=== PATIENT | female | born 1950 | race Caucasian/White ===

== ENCOUNTER 2021-01-17 10:44 | Emergency (ER) | payer MEDICARE, OTHER ==
[~2021-01-17] VITALS: Ht 160 cm; Wt 56.7 kg
--- NOTE | 2021-01-17 11:20 | NUR ---
MILD NAUSEA/MUSCLE ACHES AND COUGH->TESTED POSITIVE FOR COVID ON FRIDAY. "I HAVE DINAH AND CELIAC AND MY PCP BACK HOME RECCOMENDED I HAVE THE ANTI BODY INFUSION" APPEARS WELL, VSS (POX 99% WITH RR OF 12) ERP AT BEDSIDE TO ADMIN ANTIBODY
[2021-01-17] MEDS ORDERED: BAMLANIVIMAB 700 MG in SODIUM CHLORIDE 0.9% 250 ML IVPB ONE (11:30)
[2021-01-17] MEDS ORDERED: SODIUM CHLORIDE FLUSH 10ML SYR IVF ONE (11:30)
[2021-01-17] MEDS ORDERED: FILTER 0.22 MICRON IV ONE (11:30)
--- NOTE | 2021-01-17 11:53 | NUR ---
piv placed report to ton ornelas
[2021-01-17] MEDS ORDERED: LEVO112C4 PO (11:56)
[2021-01-17] MEDS ORDERED: ONDANSETRON 2MG/ML, 2ML ONE (11:57)
[2021-01-17] MEDS ORDERED: ONDANSETRON 2MG/ML, 2ML IVPush ONE (12:00)
--- NOTE | 2021-01-17 12:14 | NUR ---
pt in bed with no signs or symptoms of acute distress noted respirations even and unlabored, given medication information sheet. pt reviewed provided information and states that she is agreeable to transfusion. pt premedicated as ordered with zofran iv for nausea. infusion started at 1212. rn at bedside to monitor.
--- NOTE | 2021-01-17 13:23 | NUR ---
pt in bed with no signs or symptoms of acute dsitress noted respirations even and unlabored, denies pain or discomfort at this time. medication infusion nearing completion, no adverse reaction noted. bed rails up bilaterally and call light within reach.
--- NOTE | 2021-01-17 13:36 | NUR ---
medication infusion complete, pt verbalizes readiness to go home, md aware. pt will be monitored for 30 mins post infusion to ensure that there are no adverse reactions. pt up to ambulate to bathroom walked with steady gait and good balance returned safely to bed, no signs or symptoms of acute distress noted respirations even and unlabored. pt denies need or discomfort at this time, aware and agreeable with plan of care.
[2021-01-17 14:09] VITALS: BP 157/87
== END 2021-01-17 14:11 | disposition home or self-care (01) ==
LOC: ED 14:07
DX: U07.1 COVID-19 (principal); J06.9 Acute upper respiratory infection, unspecified
CPT/HCPCS: 96374; 99285; J2405; J7050; M0239; Q0239